=== PATIENT | female | born 1975 | race American Indian/Alaskan Native ===

== ENCOUNTER 2021-11-24 14:05 | Emergency (ER) | payer OTHER ==
[2021-11-24 14:16] VITALS: BP 110/64
[2021-11-24] MEDS ORDERED: MORPHINE 4 MG/1 ML INJ IV ONE ×2 (15:20→18:19)
[2021-11-24] MEDS ORDERED: ONDANSETRON 4 MG/2 ML INJ IV ONE (15:20)
[2021-11-24] MEDS ORDERED: PANTOPRAZOLE 40 MG INJ IV ONE (15:21)
--- NOTE | 2021-11-24 15:21 | Emergency Department Report ---
ED General Adult HPI - General Chief complaint: Chest Pain Stated complaint: CHEST PAIN PUI?: No Time Seen by Provider: 11/24/21 15:04 Source: patient, EMS ( EMS documentation not available at time of chart dictation ), RN notes reviewed Mode of arrival: Stretcher Limitations: No Limitations - History of Present Illness Initial comments: The patient was evaluated in the emergency department for symptoms described in the history of present illness. He/she was evaluated in the context of the global COVID-19 pandemic, which necessitated consideration that the patient might be at risk for infection with the virus that causes COVID-19. Institutional protocols and algorithms that pertain to the evaluation of patients at risk for COVID-19 are in a state of rapid change based on information released by regulatory bodies including the CDC and federal and state organizations. These policies and algorithms were followed during the patient's care in the emergency department. Please note that these policies, procedures and recommendations changed on a rapid basis. This is a pleasant and cooperative 46-year-old female. She is right-hand dominant. She is COVID-19 vaccinated. She has a history of nonspecific lupus, and is not currently on any maintenance medications. She was previously on Plaquenil a few years ago, but self discontinued. She presents to the ER today with a complaint of a few days of right-sided anterior chest wall pain. The chest wall pain today radiates to the back. There is no vomiting, diaphoresis or exertional shortness of breath. She feels like her lower extremities are more swollen than usual. 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 Her chest wall pain is aching and sharp, increases with palpation and decreases with rest. She also describes nonspecific left upper extremity numbness and pain and discomfort, which relieves when she elevates her left upper extremity. Currently, denies headache, neck pain, abdominal pain, vomiting, diaphoresis, hematemesis, bright red blood per rectum, and urinary symptoms. She was given aspirin and nitroglycerin by EMS in the field. Reports that she has many half siblings. She believes that her father has a history of CAD in his 70s. Uncertain about mother. No history of PE or DVT that she is aware of -: days(s) Location: chest, left, upper extremity Radiation: back Severity scale (0 -10): 1 Quality: other Consistency: other Improves with: other Worsens with: other - Related Data Previous Rx's Medication Instructions Recorded Last Taken Type Acetaminophen [Non-Aspirin Extra 500 mg PO Q6HR PRN #30 tablet 11/24/21 Unknown Rx Strength] Ibuprofen [Motrin] 600 mg PO Q8H PRN #30 tablet 11/24/21 Unknown Rx Allergies Allergy/AdvReac Type Severity Reaction Status Date / Time No Known Allergies Allergy Unverified 11/24/21 14:16 ED Review of Systems ROS: Stated complaint: CHEST PAIN Other details as noted in HPI Constitutional: denies: fever Eyes: denies: eye discharge ENT: denies: epistaxis Respiratory: denies: cough, wheezing Cardiovascular: chest pain Gastrointestinal: denies: abdominal pain, vomiting, hematemesis, melena, hematochezia Genitourinary: denies: dysuria Musculoskeletal: back pain Neurological: paresthesias. denies: weakness Psychiatric: depression ED Past Medical Hx - Past Medical History Additional medical history: lupus - Medications Home Medications: Home Medications Medication Instructions Recorded Confirmed Last Taken Type Acetaminophen [Non-Aspirin Extra 500 mg PO Q6HR PRN #30 tablet 11/24/21 Unknown Rx Strength] Ibuprofen [Motrin] 600 mg PO Q8H PRN #30 tablet 11/24/21 Unknown Rx ED Physical Exam - General Limitations: No Limitations, Other (During the history and physical examination, chaperoned by Camille Kauffman) General appearance: alert, anxious, obese - Head Head exam: Present: atraumatic, normocephalic - Eye Eye exam: Present: normal appearance, EOMI. Absent: nystagmus - ENT ENT exam: Present: normal exam, normal orophraynx, mucous membranes moist, normal external ear exam - Neck Neck exam: Present: normal inspection, full ROM. Absent: tenderness, meningismus - Respiratory Respiratory exam: Present: normal lung sounds bilaterally, chest wall tenderness. Absent: respiratory distress, wheezes, rales, rhonchi, stridor - Cardiovascular Cardiovascular Exam: Present: regular rate, normal rhythm, normal heart sounds. Absent: bradycardia, tachycardia, irregular rhythm, systolic murmur, diastolic murmur, rubs, gallop - GI/Abdominal GI/Abdominal exam: Present: soft. Absent: distended, tenderness, guarding, rebound, rigid, pulsatile mass - Extremities Exam Extremities exam: Present: normal inspection, full ROM, other (2+ pulses noted in the bilateral upper and lower extremities. There is no palpable cord. negative Homans sign. Muscular compartments are soft. The pelvis is stable.). Absent: calf tenderness - Back Exam Back exam: Present: normal inspection, full ROM. Absent: tenderness, CVA tenderness (R), CVA tenderness (L), paraspinal tenderness, vertebral tenderness - Neurological Exam Neurological exam: Present: alert, oriented X3, normal gait, other (No facial droop. Tongue midline. Extraocular movements intact bilaterally. Facial sensation intact to light touch in V1, V2, V3 distribution bilaterally. 5 and a 5 strength in 4 extremities. Sensation intact to light touch in 4 extremities.). Absent: motor sensory deficit - Psychiatric Psychiatric exam: Present: anxious - Skin Skin exam: Present: warm, dry, intact, normal color. Absent: rash ED Course Vital Signs 11/24/21 11/24/21 14:11 17:07 Temperature 98.2 F Pulse Rate 74 Respiratory 18 Rate Blood Pressure 110/64 [Left] O2 Sat by Pulse 98 Oximetry O2 Sat by Pulse 100 Oximetry [ Digit-Finger] - Reevaluation(s) Reevaluation #1: 11/24/21 16:51 Differential diagnosis, including but not limited to: GERD, gastritis, hiatal hernia, costochondritis, acute coronary syndrome, pulmonary embolism, thoracic outlet syndrome, cervical radiculopathy Assessment and plan: 46-year-old female, with a history of lupus, with chest pain that is subacute for the past few days, that radiates to the back, with a component of left upper extremity paresthesias and pain, which improved when she elevates the left upper extremity Given history of lupus, and nonspecific chest pain that radiates to the back, obtain CT angiogram of the chest. Troponin negative x1, EKG unremarkable, symptoms present for days, acute AR ruled out, patient at low risk for major adverse cardiac event as per heart score. She has equal pulses in the upper and lower extremities, no pulsatile abdominal mass, and appropriate strength and sensation in the upper and lower extremities. Her examination at this time is not suggestive of acute aortic syndrome. Her examination at this time is not suggestive of cord compression. We will treat her symptoms aggressively. We will obtain CT angiogram chest, and CT angiogram left upper extremity to evaluate for PE, as well as thoracic outlet syndrome. I discussed this plan of care with the patient and significant other at the bedside with her consent. All questions have been answered 11/24/21 17:07 Patient in no acute distress. She reports that her pain is markedly improved. Her troponin is negative. Discussed all findings with patient. She endorses understanding 11/24/21 18:20 CT scan chest negative for acute findings. CT scan upper extremity negative for acute finding. Having persistent chest wall pain. Predosing pain medication. Patient may be discharged to follow-up with outpatient primary care and/or cardiology. Patient at low risk for major adverse cardiac event as per heart score - Pulse Oximetry Interpretation Digit-Finger Initial Pulse Oximetry Readin O2 Sat by Pulse Oximetry: 100 Actions Taken: none ED Medical Decision Making - Lab Data Result diagrams: 11/24/21 15:37 11/24/21 15:37 Vital Signs 11/24/21 14:11 Temperature 98.2 F Pulse Rate 74 Respiratory 18 Rate Blood Pressure 110/64 [Left] O2 Sat by Pulse 98 Oximetry Lab Results 11/24/21 11/24/21 11/24/21 Range/Units 15:37 15:37 15:37 WBC 7.2 (4.5-11.0) K/mm3 RBC 4.40 (3.65-5.03) M/mm3 Hgb 11.7 (10.1-14.3) gm/dl Hct 37.3 (30.3-42.9) % MCV 85 (79-97) fl MCH 27 L (28-32) pg MCHC 31 (30-34) % RDW 15.6 H (13.2-15.2) % Plt Count 229 (140-440) K/mm3 Lymph % (Auto) 26.5 (13.4-35.0) % [place] % (Auto) 8.4 H (0.0-7.3) % Eos % (Auto) 3.3 (0.0-4.3) % Baso % (Auto) 1.2 (0.0-1.8) % Lymph # (Auto) 1.9 (1.2-5.4) K/mm3 [place] # (Auto) 0.6 (0.0-0.8) K/mm3 Eos # (Auto) 0.2 (0.0-0.4) K/mm3 Baso # (Auto) 0.1 (0.0-0.1) K/mm3 Seg Neutrophils % 60.6 (40.0-70.0) % Seg Neutrophils # 4.3 (1.8-7.7) K/mm3 Sodium 139 (137-145) mmol/L Potassium 4.8 (3.6-5.0) mmol/L Chloride 105.2 (98-107) mmol/L Carbon Dioxide 23 (22-30) mmol/L Anion Gap 16 mmol/L BUN 14 (7-17) mg/dL Creatinine 0.8 (0.6-1.2) mg/dL Estimated GFR > 60 ml/min BUN/Creatinine Ratio 18 % Glucose 79 (65-100) mg/dL Calcium 9.4 (8.4-10.2) mg/dL Magnesium 1.80 (1.7-2.3) mg/dL Total Bilirubin 0.40 (0.1-1.2) mg/dL AST 24 (5-40) units/L ALT 29 (7-56) units/L Alkaline Phosphatase 88 (35-129) units/L Total Creatine Kinase 84 (30-135) units/L Troponin T < 0.010 (0.00-0.029) ng/mL NT-Pro-B Natriuret Pep 76.73 (0-450) pg/mL Total Protein 6.6 (6.3-8.2) g/dL Albumin 4.1 (3.9-5) g/dL Albumin/Globulin Ratio 1.6 % HCG, Qual Negative (Negative) - EKG Data -: EKG Interpreted by Ms EKG shows normal: sinus rhythm Rate: normal - EKG Data When compared to previous EKG there are: previous EKG unavailable 11/24/21 16:47 The EKG is interpreted at 15: 23 Sinus rhythm, with a rate of 63 bpm. Normal axis, normal intervals, unremarkable EKG, not a STEMI, no prior for comparison - Radiology Data Radiology results: pending, report reviewed, image reviewed CTA CHEST WITH CONTRAST INDICATION / CLINICAL INFORMATION: acute cp rad to back. TECHNIQUE: Axial CT images were obtained through the chest after injection of IV contrast. 3 plane MIP and/or 3D reconstructions were produced. All CT scans at this location are performed using CT dose reduction for ALARA by means of automated exposure control. COMPARISON: None available. FINDINGS: The pulmonary arteries are patent without filling defect or evidence for PTE. No dominant mediastinal adenopathy is seen. No severe coronary artery disease. No focal consolidation pleural effusion or pneumothorax. Aorta appears normal. ADDITIONAL FINDINGS: None. UPPER ABDOMEN: No acute findings. SKELETAL STRUCTURES: No significant osseous abnormality. IMPRESSION: 1. No CT evidence for pulmonary embolism. 2. No acute findings. Signer Name: Da Madsen MD Signed: 11/24/2021 4:59 PM Workstation Name: [id number] CT angio upper extremity LT INDICATION / CLINICAL INFORMATION: Chest pain that radiates to the left upper extremi. TECHNIQUE: Axial, coronal and sagittal images All CT scans at this location are performed using CT dose reduction for ALARA by means of automated exposure control. COMPARISON: None available. FINDINGS: Aorta appears normal. The left subclavian artery appears normal without narrowing. The left upper extremity arteries appear normal in size and configuration. No severe stenosis is definitely seen. No fluid collection is seen in the left upper extremity or left neck. Radial artery or artery appear normal extending into the hand IMPRESSION: 1. Normal arterial flow within the left upper extremity. The subclavian appears normal without stenosis or evidence for narrowing. Signer Name: Da Madsen MD Signed: 11/24/2021 5:11 PM Workstation Name: [id number] Critical care attestation.: If time is entered above; I have spent that time in minutes in the direct care of this critically ill patient, excluding procedure time. ED Disposition Clinical Impression: Chest wall pain, Left arm pain Disposition: 01 HOME / SELF CARE / HOMELESS Is pt being admited?: No Does the pt Need Aspirin: No Condition: Good Instructions: Costochondritis Additional Instructions: Please alternate ice packs and heat packs as needed for physical pain. Rest, avoid heavy lifting and strenuous physical activity. Avoid consumption of alcohol, tobacco, smoke products, heavy and spicy foods. Please take the prescribed pain medications as needed/directed. Please follow-up with a bellman captain within the next 3 to 4 days. Laboratory studies ruled out heart attack today in the emergency room. A CT scan of the chest and left upper extremity ruled out a pulmonary embolism/blood clot in the lungs, collapsed lung, narrowed artery, no other emergent thoracic or pulmonary findings. Symptoms most likely coming from chest wall pain/costochondritis, and possible pinched nerve in the left upper extremity/radiculopathy. Please return to the emergency room right away with new pain, worsened pain, migration of pain, projectile vomiting, change in mental status, confusion, inability tolerate liquid feeds, new, worsened or different symptoms not present on the initial emergency room evaluation Referrals: [facility] [Provider Group] - 3-5 Days [facility] [Provider Group] - 3-5 Days Forms: Work/School Release Form(ED) Heart Score - HEART Score History: Slightly suspicious EKG: Non-specific Age: 45-65 Risk factors: 1-2 risk factors Troponin: < normal limit HEART Score: 3 - EKG Read Time Time EKG Completed: 15:23 EKG Read Time: 15:30 - Critical Actions Critical Actions: 0-3 pts:0.9-1.7%risk of adverse cardiac event.Candidate for discharge
[2021-11-24 16:09] LABS: Basophils # (Auto) 0.1 K/mm3 (0.0-0.1); Basophils % (Auto) 1.2 % (0.0-1.8); Eosinophils # (Auto) 0.2 K/mm3 (0.0-0.4); Eosinophils % (Auto) 3.3 % (0.0-4.3); Hematocrit 37.3 % (30.3-42.9); Hemoglobin 11.7 gm/dl (10.1-14.3); Lymphocytes # (Auto) 1.9 K/mm3 (1.2-5.4); Lymphocytes % (Auto) 26.5 % (13.4-35.0); Mean Corpuscular HGB Conc 31 % (30-34); Mean Corpuscular Volume 85 fl (79-97); Monocytes # (Auto) 0.6 K/mm3 (0.0-0.8); Monocytes % (Auto) 8.4 % (0.0-7.3); Platelet Count 229 K/mm3 (140-440); Red Cell Distribution Width 15.6 % (13.2-15.2)
[2021-11-24 16:38] LABS: Alanine Aminotransferase 29 units/L (7-56); Albumin 4.1 g/dL (3.9-5); BUN/Creatinine Ratio 18; Blood Urea Nitrogen 14 mg/dL (7-17); Calcium 9.4 mg/dL (8.4-10.2); Hemolysis Index 16
[2021-11-24 16:49] LABS: INR 0.93 (0.87-1.13)
[2021-11-24 16:50] LABS: Partial Thromboplastin Time 28.8 Sec. (24.2-36.6)
--- NOTE | 2021-11-24 18:04 | Cat Scan Report ---
CTA CHEST WITH CONTRAST INDICATION / CLINICAL INFORMATION: acute cp rad to back. TECHNIQUE: Axial CT images were obtained through the chest after injection of IV contrast. 3 plane NM P and/or 3D reconstructions were produced. All CT scans at this location are performed using CT dose reduction for ALARA by means of automated exposure control. COMPARISON: None available. FINDINGS: The pulmonary arteries are patent without filling defect or evidence for PTE. No dominant mediastinal adenopathy is seen. No severe coronary artery disease. No focal consolidation pleural effusion or pn eumothorax. Aorta appears normal. ADDITIONAL FINDINGS: None. UPPER ABDOMEN: No acute findings. SKELETAL STRUCTURES: No significant osseous abnormality. IMPRESSION: 1. No CT evidence for pulmonary embolism. 2. No acute findings. Signer Name: Da Madsen MD Signed: 11/24/2021 5:59 PM Workstation Name: [id number]
--- NOTE | 2021-11-24 18:15 | Cat Scan Report ---
CT angio upper extremity LT INDICATION / CLINICAL INFORMATION: Chest pain that radiates to the left upper extremi. TECHNIQUE: Axial, coronal and sagittal images All CT scans at this location are performed using CT dose reductio n for ALARA by means of automated exposure control. COMPARISON: None available. FINDINGS: Aorta appears normal. The left subclavian artery appears normal without narrowing. The left upper ext remity arteries appear normal in size and configuration. No severe stenosis is definitely seen. No fl uid collection is seen in the left upper extremity or left neck. Radial artery or artery appear gabino l extending into the hand IMPRESSION: 1. Normal arterial flow within the left upper extremity. The subclavian appears normal without stenos is or evidence for narrowing. Signer Name: Da Madsen MD Signed: 11/24/2021 6:11 PM Workstation Name: [id number]
[2021-11-24] MEDS ORDERED: KETOROLAC 30 MG/1 ML INJ IV ONE (18:19)
--- NOTE | 2021-11-26 09:55 | Electrocardiograph Report ---
[facility] Test Date: 2021-11-24 Test Time: 15:23:43 Pat Name: RM MORRIS Department: Room: Gender: F Turn Supervisor: FREDDY : 1975 Requested By: LACY EDWARDS Order Number: [id number] Reading MD: Lavelle Vail Measurements Intervals [place] Rate: 63 P: 34 MD: 148 QRS: 61 QRSD: 77 T: 53 QT: 394 QTc: 403 Interpretive Statements Sinus rhythm No previous ECG available for comparison Electronically Signed On 11-26-2021 9:55:13 EDT by Lavelle Vail
== END 2021-11-24 18:46 | disposition home or self-care (01) ==
LOC: ED 14:05
DX: R07.9 Chest pain, unspecified (principal); M79.602 Pain in left arm
CPT/HCPCS: 36415; 71275; 73206; 80053; 82550; 83735; 83880; 84484; 84703; 85025; 85379; 85610; 85730; 93005; 96374; 96375; 96376; 99284; C9113; J1885; J2270; J2405; Q9967

== ENCOUNTER 2021-12-11 12:00 | Observation (INO) | payer OTHER ==
[2021-12-11] MEDS ORDERED: ASPIRIN 81 MG TAB CHEW PO ONE (12:14)
--- NOTE | 2021-12-11 13:15 | Emergency Department Report ---
ED Chest Pain HPI - General Chief Complaint: Chest Pain Stated Complaint: CHEST PAIN Time Seen by Provider: 12/11/21 12:14 Source: patient, EMS Mode of arrival: Stretcher Limitations: No Limitations - History of Present Illness Initial Comments: Patient is a 46-year-old female sent from [facility] for evaluation of chest pain. She was seen here roughly a week ago with complaint of chest pain and discharged. Was at her appointment today undergoing stress test which was reportedly abnormal. States she developed worsening pain shortly after and was sent here for evaluation and admission with plans for heart catheterization. Severity scale (0 -10): 6 - Related Data Previous Rx's Medication Instructions Recorded Last Taken Type Acetaminophen [Non-Aspirin Extra 500 mg PO Q6HR PRN #30 tablet 11/24/21 Unknown Rx Strength] Ibuprofen [Motrin] 600 mg PO Q8H PRN #30 tablet 11/24/21 Unknown Rx Allergies Allergy/AdvReac Type Severity Reaction Status Date / Time No Known Allergies Allergy Unverified 11/24/21 14:16 Heart Score - HEART Score History: Highly suspicious EKG: Normal Age: 45-65 Risk factors: 1-2 risk factors Troponin: < normal limit HEART Score: 4 - EKG Read Time Time EKG Completed: 12:32 EKG Read Time: 12:35 - Critical Actions Critical Actions: 4-6 pts:12-16.6% risk of adverse cardiac event. Should be admi tted ED Review of Systems ROS: Stated complaint: CHEST PAIN Other details as noted in HPI Constitutional: denies: chills, fever Respiratory: denies: cough, shortness of breath, wheezing Cardiovascular: chest pain. denies: palpitations Gastrointestinal: denies: abdominal pain, nausea, diarrhea Musculoskeletal: denies: back pain, joint swelling, arthralgia Skin: denies: rash, lesions Neurological: denies: headache, weakness, paresthesias ED Past Medical Hx - Past Medical History Additional medical history: lupus - Social History Smoking Status: Never Smoker Substance Use Type: None - Medications Home Medications: Home Medications Medication Instructions Recorded Confirmed Last Taken Type Acetaminophen [Non-Aspirin Extra 500 mg PO Q6HR PRN #30 tablet 11/24/21 Unknown Rx Strength] Ibuprofen [Motrin] 600 mg PO Q8H PRN #30 tablet 11/24/21 Unknown Rx ED Physical Exam - General Limitations: No Limitations General appearance: alert, in no apparent distress - Head Head exam: Present: atraumatic, normocephalic - Respiratory Respiratory exam: Present: normal lung sounds bilaterally. Absent: respiratory distress - Cardiovascular Cardiovascular Exam: Present: regular rate, normal rhythm, normal heart sounds - GI/Abdominal GI/Abdominal exam: Present: soft. Absent: distended, tenderness - Rectal Rectal exam: Present: deferred - Neurological Exam Neurological exam: Present: alert, oriented X3 - Psychiatric Psychiatric exam: Present: normal affect, normal mood - Skin Skin exam: Present: warm, dry, intact, normal color ED Course Vital Signs 12/11/21 12/11/21 12/11/21 12:17 12:40 12:46 Pulse Rate 84 85 90 Respiratory 17 11 L 11 L Rate Blood Pressure 141/67 Blood Pressure 141/67 [Left] O2 Sat by Pulse 99 99 100 Oximetry 12/11/21 12/11/21 12/11/21 13:00 13:15 13:31 Pulse Rate 88 89 77 Respiratory 16 11 L 12 Rate Blood Pressure 161/87 171/89 135/72 Blood Pressure [Left] O2 Sat by Pulse 98 100 99 Oximetry 12/11/21 12/11/21 12/11/21 13:51 14:01 14:15 Pulse Rate 86 83 80 Respiratory 20 21 Rate Blood Pressure 141/62 133/74 135/72 Blood Pressure [Left] O2 Sat by Pulse 100 99 99 Oximetry 12/11/21 12/11/21 12/11/21 14:31 14:45 15:01 Pulse Rate 84 84 84 Respiratory 14 17 12 Rate Blood Pressure 148/80 164/59 157/79 Blood Pressure [Left] O2 Sat by Pulse 100 100 99 Oximetry 12/11/21 15:15 Pulse Rate 81 Respiratory 12 Rate Blood Pressure 147/76 Blood Pressure [Left] O2 Sat by Pulse 86 Oximetry ED Medical Decision Making - Lab Data Result diagrams: 12/11/21 12:22 12/11/21 12:22 - EKG Data -: EKG Interpreted by Me EKG shows normal: sinus rhythm, axis, intervals, QRS complexes, ST-T waves Rate: normal - Medical Decision Making EKG, chest x-ray and labs grossly unremarkable. Will admit to hospitalist. Critical care attestation.: If time is entered above; I have spent that time in minutes in the direct care of this critically ill patient, excluding procedure time. ED Disposition Clinical Impression: Positive cardiac stress test, Chest pain Disposition: 09 ADMITTED INPATIENT Is pt being admited?: Yes Condition: Stable
[2021-12-11 13:20] LABS: Hematocrit 38.9 % (30.3-42.9); Hemoglobin 12.8 gm/dl (10.1-14.3); Mean Corpuscular HGB Conc 33 % (30-34); Mean Corpuscular Volume 83 fl (79-97); Platelet Count 266 K/mm3 (140-440); Red Blood Count 4.66 M/mm3 (3.65-5.03); Red Cell Distribution Width 15.8 % (13.2-15.2)
[2021-12-11 13:26] LABS: INR 0.92 (0.87-1.13)
[2021-12-11 13:27] LABS: Partial Thromboplastin Time 27.5 Sec. (24.2-36.6)
[2021-12-11 13:45] LABS: Alanine Aminotransferase 21 units/L (7-56); Albumin 4.5 g/dL (3.9-5); Blood Urea Nitrogen 14 mg/dL (7-17); Calcium 9.8 mg/dL (8.4-10.2); Hemolysis Index 5
--- NOTE | 2021-12-11 14:03 | XRay Report ---
CHEST 1 VIEW 12/11/2021 12:56 PM INDICATION / CLINICAL INFORMATION: Chest Pain. COMPARISON: None available. FINDINGS: SUPPORT DEVICES: None. HEART / MEDIASTINUM: The heart size and pulmonary vasculature are normal. The aorta is normal in nataly amna. LUNGS / PLEURA: No significant pulmonary or pleural abnormality. No pneumothorax. ADDITIONAL FINDINGS: No significant additional findings. IMPRESSION: No acute findings. Signer Name: Jhoan Chin MD Signed: 12/11/2021 1:59 PM Workstation Name: [id number]
[2021-12-11 14:10] LABS: BUN/Creatinine Ratio 20
[2021-12-11 14:22] LABS: Basophils % (Manual) 0 % (0.0-1.8); Eosinophils % (Manual) 0 % (0.0-4.3); Platelet Estimate Consistent w Auto; RBC Morphology Normal; Total Cells Counted 100
[2021-12-11] MEDS ORDERED: HEPARIN BOLUS 10,000 UNIT/10 ML VIAL IV ONE (15:32)
[2021-12-11] MEDS ORDERED: ALBUTEROL 2.5 MG/3 ML NEBU IH PRN (15:34)
[2021-12-11] MEDS ORDERED: HYDROmorphone 0.5 MG/0.5 ML INJ IV PRN (15:34)
[2021-12-11] MEDS ORDERED: ACETAMINOPHEN 325 MG TAB PO PRN (15:34)
[2021-12-11] MEDS ORDERED: oxyCODONE /ACETAMINOPHEN 5-325MG TAB PO PRN (15:34)
--- NOTE | 2021-12-11 15:38 | History and Physical Report ---
History of Present Illness Chief complaint: My chest hurts History of present illness: 46 YO Female with SLE, Obesity presents ED for evaluation. Patient reports "my chest hurts". Patient states that she has experienced pain in her chest over the past 2 weeks. Patient states that pain was initially intermittent but has become more constant. Patient states that pain is 4-09/2009, intermittent, worsened with exertion, relieved with rest. 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 EMS was notified and upon arrival the patient was transported to [facility] for further care and evaluation of the aforementioned symptoms. The patient was seen and evaluated in the emergency department. All lab and imaging studies reviewed. Patient found to have clinical symptoms consistent with angina at rest, as well as diastolic CHF, and NSTEMI. Patient initiated on therapeutic anticoagulation in the emergency department. Cardiology team consulted. Pat ient is pending cardiac cath. Patient denies fever, chills, productive cough, skin rash, recent contact, unilateral leg swelling, calf pain, individual/family history of DVT/PE/bleeding/blood clotting disorders, or known exposure to COVID- 19. No prior admission for review. No medication listed at time of admission for reconciliation. Advanced care planning conducted in ED. Past History Past Medical History: other (SLE, see HPI) Past Surgical History: No surgical history, Other (Reviewed) Social history: single. denies: smoking, alcohol abuse Family history: hypertension Medications and Allergies Allergies Allergy/AdvReac Type Severity Reaction Status Date / Time No Known Allergies Allergy Unverified 11/24/21 14:16 Home Medications Medication Instructions Recorded Confirmed Last Taken Type Acetaminophen [Non-Aspirin Extra 500 mg PO Q6HR PRN #30 tablet 11/24/21 Unknown Rx Strength] Ibuprofen [Motrin] 600 mg PO Q8H PRN #30 tablet 11/24/21 Unknown Rx Active Meds: Active Medications Atorvastatin Calcium (Atorvastatin 40 Mg Tab) 40 mg PO QHS DAWNA Sodium Chloride (Nacl 0.9% 500 Ml) 500 mls @ 50 mls/hr IV DIRECT DAWNA Stop: 12/12/21 01:59 Heparin Sodium/Sodium Chloride (Heparin/ 0.45% Nacl-25,000 Unit/250 Ml) 25,000 unit in 250 mls @ 11.975 mls/hr IV TITRATE DAWNA; Protocol Metoprolol Tartrate (Metoprolol Tartrate 50 Mg Tab) 25 mg PO BID [facility] Review of Systems Constitutional: no weight loss, no weight gain, no fever, no chills Ears, nose, mouth and throat: no ear pain, no ear discharge, no decreased hearing, no nose pain Cardiovascular: chest pain, decreased exercise tolerance, no palpitations, no edema Respiratory: no cough, no cough with sputum, no excessive sputum Gastrointestinal: no nausea, no vomiting, no diarrhea, no constipation Genitourinary Female: no pelvic pain, no flank pain, no dysuria, no urinary frequency, no urgency Rectal: no pain, no incontinence, no bleeding Musculoskeletal: no neck stiffness, no neck pain, no shooting arm pain, no arm numbness/tingling Integumentary: no rash, no pruritis, no redness, no sores, no wounds, no jaundice Neurological: no paralysis, no weakness, no parathesias, no numbness, no tingling, no seizures Psychiatric: no anxiety, no change in sleep habits, no insomnia, no change in appetite, no change in libido, no suicidal ideation Endocrine: no cold intolerance, no polyuria, no nocturia, no excessive sweating Hematologic/Lymphatic: no easy bruising, no easy bleeding Allergic/Immunologic: no urticaria, no allergic rhinitis Exam - Constitutional Vitals: Temp Pulse Resp BP Pulse Ox 81 12 147/76 86 12/11/21 15:15 12/11/21 15:15 12/11/21 15:15 12/11/21 15:15 General appearance: Present: mild distress, obese - EENT Eyes: Present: PERRL ENT: hearing intact, clear oral mucosa - Neck Neck: Present: supple, normal ROM - Respiratory Respiratory effort: normal Respiratory: bilateral: CTA - Cardiovascular Heart Sounds: Present: S1 & S2. Absent: rub, click - Extremities Extremities: pulses symmetrical, No edema Peripheral Pulses: within normal limits - Abdominal General gastrointestinal: Present: soft, non-tender, non-distended, normal bowel sounds Female genitourinary: Present: normal - Integumentary Integumentary: Present: clear, warm, dry - Musculoskeletal Musculoskeletal: gait normal, strength equal bilaterally - Psychiatric Psychiatric: appropriate mood/affect, intact judgment & insight - Neurologic Neurologic: CNII-XII intact, moves all extremities HEART Score - HEART Score EKG: Normal Age: 45-65 Risk factors: 1-2 risk factors Troponin: Troponin T < 0.010 ng/mL (0.00-0.029) 12/11/21 12:22 Troponin: < normal limit - Critical Actions Critical Actions: 4-6 pts:12-16.6% risk of adverse cardiac event. Should be admitted Results - Labs CBC & Chem 7: 12/11/21 15:42 12/11/21 12:22 Labs: Abnormal lab results 12/11/21 12/11/21 Range/Units 12:22 12:22 MCH 27 L (28-32) pg RDW 15.8 H (13.2-15.2) % Seg Neuts % (Manual) 97.0 H (40.0-70.0) % Lymphocytes % (Manual) 1.0 L (13.4-35.0) % Seg Neutrophils # Man 9.7 H (1.8-7.7) K/mm3 Lymphocytes # (Manual) 0.1 L (1.2-5.4) K/mm3 Sodium 135 L (137-145) mmol/L Carbon Dioxide 21 L (22-30) mmol/L Glucose 139 H (65-100) mg/dL Assessment and Plan - Patient Problems (1) Angina at rest Current Visit: Yes Status: Acute Plan to address problem: ACS protocol: Serial cardiac enzymes, EKG, telemetry monitoring, morphine, submental oxygen, nitro, aspirin, patient pending cardiac cath in a.m. Cardiology team consulted. Further care and evaluation as per cardiology team. (2) Diastolic CHF Current Visit: Yes Status: Suspected Qualifiers: Heart failure chronicity: acute Qualified Code(s): I50.31 - Acute diastolic (congestive) heart failure Plan to address problem: Strict I's/O, monitoring application, daily weight, afterload reduction, blood pressure control, echocardiogram ordered and pending at time of admission. (3) NSTEMI (non-ST elevated myocardial infarction) Current Visit: Yes Status: Suspected Plan to address problem: ACS protocol: Serial cardiac enzymes, EKG, telemetry monitoring, cardiology team consulted, therapeutic anticoagulation, supportive care, pain control, continue medical management. Further care and evaluation as per cardiology team. (4) Obesity hypoventilation syndrome Current Visit: Yes Status: Acute Plan to address problem: Balanced diet, increase physical activity discharge, outpatient pulmonary follow-up for sleep study, meal planning, weight reduction, supportive care. (5) Lupus Current Visit: Yes Status: Acute Plan to address problem: Continue medical management. Outpatient rheumatology follow-up, supportive care. No acute exacerbation at this time. (6) Positive cardiac stress test Current Visit: Yes Status: Acute Plan to address problem: Cardiology team consulted. Patient pending cardiac cath in a.m. Therapeutic anticoagulation. (7) DVT prophylaxis Current Visit: Yes Status: Acute Plan to address problem: SCDs bilateral lower extremities while in bed (8) Advance care planning Current Visit: Yes Status: Acute Plan to address problem: Disease education done, care plan discussed, diagnoses, prognosis discussed, patient is full code. Patient knowledges understanding and agreement with care plan, +30 minutes. (9) Preventative health care Current Visit: Yes Status: Acute Plan to address problem: Patient counseled regarding risk factor reduction, weight reduction, balanced diet, increase physical activity discharge, follow-up with primary care physician for all age and risk factor appropriate screening test. Follow-up with financial examiner for all age and risk factor appropriate screening test. +30 minutes.
[2021-12-11] MEDS ORDERED: HEPARIN/ 0.45% NACL DRIP 25,000 UNIT/250 ML BAG IV SCH (16:00)
[2021-12-11] MEDS: METOPROLOL TARTRATE 25 MG TAB PO SCH ×2 (16:23→21:55)
[2021-12-11] MEDS: ONDANSETRON 4 MG/2 ML INJ IV PRN (16:31)
[2021-12-11 16:39] LABS: Hematocrit 39.7 % (30.3-42.9); Hemoglobin 12.7 gm/dl (10.1-14.3)
[2021-12-11 16:49] LABS: INR 0.89 (0.87-1.13)
[2021-12-11 16:50] LABS: Partial Thromboplastin Time 28.3 Sec. (24.2-36.6)
--- NOTE | 2021-12-11 17:01 | Consultation ---
History of Present Illness Consult date: 12/11/21 Requesting physician: JUAN SAM Consult reason: chest pain History of present illness: Patient is a 46-year-old female with a past medical history of lupus who presented to the ED today with a complaint of chest pain x2-week. Patient presented to the ED about 2 weeks ago with a complaint of chest pain. At that time patient had normal EKG and negative troponins and was recommended to follow-up with cardiology as an outpatient. Patient followed up with our practice and was seen by Dr. Engle who scheduled patient for stress test. Patient presented for stress test in the clinic today and was found to have markedly abnormal stress test and continued to have chest pain. Patient was sent from the clinic to the ED for further evaluation. Patient describes chest pain as pressure, that is worse with exertion and has not have any relieving factors. Patient also reports some shortness of breath that is also worse with exertion and associated with her chest pain. Patient reports the chest pain is not worsened by palpation or deep breathing. Cardiology is consulted for angina. Past History Past Medical History: other (Lupus) Past Surgical History: No surgical history Social history: no significant social history Family history: CAD, diabetes, hypertension, other (Asthma) Medications and Allergies Allergies Allergy/AdvReac Type Severity Reaction Status Date / Time No Known Allergies Allergy Unverified 11/24/21 14:16 Home Medications Medication Instructions Recorded Confirmed Last Taken Type Acetaminophen [Non-Aspirin Extra 500 mg PO Q6HR PRN #30 tablet 11/24/21 Unknown Rx Strength] Ibuprofen [Motrin] 600 mg PO Q8H PRN #30 tablet 11/24/21 Unknown Rx Active Meds: Active Medications Acetaminophen (Acetaminophen 325 Mg Tab) 650 mg PO Q4H PRN PRN Reason: Pain MILD(1-3)/Fever >100.5/MITCHELL Albuterol (Albuterol 2.5 Mg/3 Ml Nebu) 2.5 mg IH Q4HRT PRN PRN Reason: Shortness Of Breath Atorvastatin Calcium (Atorvastatin 40 Mg Tab) 40 mg PO QHS DAWNA Famotidine (Famotidine 20 Mg Tab) 20 mg PO BID DAWNA Hydromorphone HCl (Hydromorphone 0.5 Mg/0.5 Ml Inj) 0.5 mg IV Q3H PRN PRN Reason: Pain , Severe (7-10) Last Admin: 12/11/21 16:30 Dose: 0.5 mg Sodium Chloride (Nacl 0.9% 500 Ml) 500 mls @ 50 mls/hr IV DIRECT DAWNA Stop: 12/12/21 01:59 Heparin Sodium/Sodium Chloride (Heparin/ 0.45% Nacl-25,000 Unit/250 Ml) 25,000 unit in 250 mls @ 9.979 mls/hr IV TITRATE DAWNA; Protocol Last Admin: 12/11/21 16:28 Dose: 10 units/kg/hr, 9.979 mls/hr Metoprolol Tartrate (Metoprolol Tartrate 25 Mg Tab) 25 mg PO BID DAWNA Last Admin: 12/11/21 16:23 Dose: 25 mg Ondansetron HCl (Ondansetron 4 Mg/2 Ml Inj) 4 mg IV Q8H PRN PRN Reason: Nausea And Vomiting Last Admin: 12/11/21 16:31 Dose: 4 mg Oxycodone/Acetaminophen (Oxycodone /Acetaminophen 5-325mg Tab) 1 tab PO Q6H PRN PRN Reason: Pain, Moderate (4-6) Sodium Chloride (Sodium Chloride 0.9% 10 Ml Flush Syringe) 10 ml IV BID DAWNA Sodium Chloride (Sodium Chloride 0.9% 10 Ml Flush Syringe) 10 ml IV PRN PRN PRN Reason: LINE FLUSH Review of Systems Constitutional: no weight loss, no weight gain Ears, nose, mouth and throat: no sinus pressure, no sinus pain Cardiovascular: chest pain, shortness of breath, dyspnea on exertion Respiratory: dyspnea on exertion Gastrointestinal: no abdominal pain, no nausea, no vomiting Musculoskeletal: no neck stiffness, no neck pain Integumentary: no rash, no pruritis, no redness Neurological: no head injury, no transient paralysis, no paralysis Psychiatric: no anxiety, no memory loss Physical Examination Vital Signs Pulse Resp BP Pulse Ox 84 17 141/67 99 12/11/21 12:17 12/11/21 12:17 12/11/21 12:17 12/11/21 12:17 General appearance: no acute distress HEENT: Positive: PERRL Cardiac: Positive: Reg Rate and Rhythm Lungs: Positive: Normal Breath Sounds Neuro: Positive: Grossly Intact Abdomen: Positive: Soft Skin: Negative: Rash, Suspicious Lesions, Ulceration Extremities: Present: upper extr. pulses. Absent: edema Results 12/11/21 15:42 12/11/21 12:22 Cardiac Enzymes 12/11/21 Range/Units 12:22 AST 18 (5-40) units/L Coagulation 12/11/21 12/11/21 Range/Units 12: 15:42 PT 13.6 13.3 (12.2-14.9) Sec. INR 0.92 0.89 (0.87-1.13) APTT 27.5 28.3 (24.2-36.6) Sec. CBC 12/11/21 12/11/21 Range/Units 12:22 15:42 WBC 10.0 (4.5-11.0) K/mm3 RBC 4.66 (3.65-5.03) M/mm3 Hgb 12.8 12.7 (10.1-14.3) gm/dl Hct 38.9 39.7 (30.3-42.9) % Plt Count 266 272 (140-440) K/mm3 Comprehensive Metabolic Panel 12/11/21 Range/Units 12:22 Sodium 135 L (137-145) mmol/L Potassium 4.5 (3.6-5.0) mmol/L Chloride 101.3 (98-107) mmol/L Carbon Dioxide 21 L (22-30) mmol/L BUN 14 (7-17) mg/dL Creatinine 0.7 (0.6-1.2) mg/dL Glucose 139 H (65-100) mg/dL Calcium 9.8 (8.4-10.2) mg/dL AST 18 (5-40) units/L ALT 21 (7-56) units/L Alkaline Phosphatase 93 (35-129) units/L Total Protein 7.4 (6.3-8.2) g/dL Albumin 4.5 (3.9-5) g/dL - Imaging and Cardiology Echo: pending Cardiac cath: pending EKG interpretations - Telemetry EKG Rhythm: Sinus Rhythm - EKG Sinus rhythms and dysrhythmias: sinus rhythm Assessment and Plan Patient is a 46-year-old female with a past medical history of lupus who presented to the ED today with a complaint of chest pain x2-week. Chest pain Abnormal stress test Lupus Obesity Plan: EKG shows sinus rhythm 84 no acute ischemic changes. Troponins negative x2 As patient presented to our clinic and had markedly abnormal stress test we will schedule patient for cardiac cath in the a.m. Patient to be n.p.o. after midnight Initiate heparin drip, aspirin, atorvastatin 40 mg p.o. nightly, and metoprolol 25 mg p.o. twice daily Echo pending Plan of care discussed with patient who verbalized understanding and acknowledgment Patient seen in conjunction with Dr. Amato who agrees with plan of care - Patient Problems (1) Lupus Current Visit: Yes Status: Acute (2) Chest pain Current Visit: Yes Status: Acute (3) Positive cardiac stress test Current Visit: Yes Status: Acute
[2021-12-11] MEDS: FAMOTIDINE 20 MG TAB PO SCH (21:55)
[2021-12-12 04:29] LABS: Basophils # (Auto) 0.1 K/mm3 (0.0-0.1); Basophils % (Auto) 0.5 % (0.0-1.8); Eosinophils # (Auto) 0.1 K/mm3 (0.0-0.4); Eosinophils % (Auto) 0.8 % (0.0-4.3); Hematocrit 36.2 % (30.3-42.9); Hemoglobin 11.4 gm/dl (10.1-14.3); Lymphocytes % (Auto) 24.7 % (13.4-35.0); Mean Corpuscular HGB Conc 32 % (30-34); Mean Corpuscular Volume 84 fl (79-97); Monocytes # (Auto) 1.1 K/mm3 (0.0-0.8); Monocytes % (Auto) 8.8 % (0.0-7.3); Platelet Count 245 K/mm3 (140-440); Red Blood Count 4.31 M/mm3 (3.65-5.03); Red Cell Distribution Width 15.6 % (13.2-15.2)
[2021-12-12 05:02] LABS: BUN/Creatinine Ratio 21; Blood Urea Nitrogen 19 mg/dL (7-17); Calcium 9.2 mg/dL (8.4-10.2); Hemolysis Index 3
[2021-12-12] MEDS ORDERED: ASPIRIN EC 325 MG TAB PO ONE (09:24)
--- NOTE | 2021-12-12 09:37 | Progress Note ---
Assessment and Plan Assessment and plan: 46-year-old female with past medical history of SLE presented through the emergency department with complaints of chest pain x2 weeks. Patient reportedly had markedly abnormal stress test as an outpatient and transferred to our facility for cardiac catheterization Chest pain Lupus Abnormal stress 12/12/2021. Continue heparin drip, aspirin metoprolol twice daily and Lipitor 40 mg daily. Patient reportedly refused echocardiogram because it was completed as outpatient. Await cardiology recommendations History Interval history: No new issues overnight Hospitalist Physical - Constitutional Vitals: Temp Pulse Resp BP Pulse Ox 98.9 F 79 16 138/68 100 12/12/21 08:35 12/12/21 08:35 12/12/21 03:31 12/12/21 08:35 12/12/21 08:35 General appearance: Present: mild distress, obese - EENT Eyes: Present: PERRL, EOM intact ENT: hearing intact, clear oral mucosa, dentition normal - Neck Neck: Present: supple, normal ROM - Respiratory Respiratory effort: normal Respiratory: bilateral: CTA - Cardiovascular Rhythm: regular Heart Sounds: Present: S1 & S2. Absent: gallop, rub - Extremities Extremities: no ischemia, No edema, Full ROM - Abdominal General gastrointestinal: soft, non-tender, non-distended, normal bowel sounds - Integumentary Integumentary: Present: clear, warm, dry - Neurologic Neurologic: CNII-XII intact, moves all extremities HEART Score - HEART Score EKG: Normal Age: 45-65 Risk factors: 1-2 risk factors Troponin: Troponin T < 0.010 ng/mL (0.00-0.029) 12/11/21 23:24 Troponin: < normal limit - Critical Actions Critical Actions: 4-6 pts:12-16.6% risk of adverse cardiac event. Should be admitted Results - Labs CBC & Chem 7: 12/12/21 03:37 12/12/21 03:37 Labs: Laboratory Last Values WBC 12.2 K/mm3 (4.5-11.0) H 12/12/21 03:37 RBC 4.31 M/mm3 (3.65-5.03) 12/12/21 03:37 Hgb 11.4 gm/dl (10.1-14.3) 12/12/21 03:37 Hct 36.2 % (30.3-42.9) 12/12/21 03:37 MCV 84 fl (79-97) 12/12/21 03:37 MCH 27 pg (28-32) L 12/12/21 03:37 MCHC 32 % (30-34) 12/12/21 03:37 RDW 15.6 % (13.2-15.2) H 12/12/21 03:37 Plt Count 245 K/mm3 (140-440) 12/12/21 03:37 Lymph % (Auto) 24.7 % (13.4-35.0) 12/12/21 03:37 Casey % (Auto) 8.8 % (0.0-7.3) H 12/12/21 03:37 Eos % (Auto) 0.8 % (0.0-4.3) 12/12/21 03:37 Baso % (Auto) 0.5 % (0.0-1.8) 12/12/21 03:37 Lymph # (Auto) 3.0 K/mm3 (1.2-5.4) 12/12/21 03:37 Casey # (Auto) 1.1 K/mm3 (0.0-0.8) H 12/12/21 03:37 Eos # (Auto) 0.1 K/mm3 (0.0-0.4) 12/12/21 03:37 Baso # (Auto) 0.1 K/mm3 (0.0-0.1) 12/12/21 03:37 Add Manual Diff Complete 12/11/21 12:22 Total Counted 100 12/11/21 12:22 Seg Neutrophils % 65.2 % (40.0-70.0) 12/12/21 03:37 Seg Neuts % (Manual) 97.0 % (40.0-70.0) H 12/11/21 12:22 Band Neutrophils % 0 % 12/11/21 12:22 Lymphocytes % (Manual) 1.0 % (13.4-35.0) L 12/11/21 12:22 Reactive Lymphs % (Man) 0 % 12/11/21 12:22 Monocytes % (Manual) 2.0 % (0.0-7.3) 12/11/21 12:22 Eosinophils % (Manual) 0 % (0.0-4.3) 12/11/21 12:22 Basophils % (Manual) 0 % (0.0-1.8) 12/11/21 12:22 Metamyelocytes % 0 % 12/11/21 12:22 Myelocytes % 0 % 12/11/21 12:22 Promyelocytes % 0 % 12/11/21 12:22 Blast Cells % 0 % 12/11/21 12:22 Nucleated RBC % Not Reportable 12/11/21 12:22 Seg Neutrophils # 8.0 K/mm3 (1.8-7.7) H 12/12/21 03:37 Seg Neutrophils # Man 9.7 K/mm3 (1.8-7.7) H 12/11/21 12:22 Band Neutrophils # 0.0 K/mm3 12/11/21 12:22 Lymphocytes # (Manual) 0.1 K/mm3 (1.2-5.4) L 12/11/21 12:22 Abs React Lymphs (Man) 0.0 K/mm3 12/11/21 12:22 Monocytes # (Manual) 0.2 K/mm3 (0.0-0.8) 12/11/21 12:22 Eosinophils # (Manual) 0.0 K/mm3 (0.0-0.4) 12/11/21 12:22 Basophils # (Manual) 0.0 K/mm3 (0.0-0.1) 12/11/21 12:22 Metamyelocytes # 0.0 K/mm3 12/11/21 12:22 Myelocytes # 0.0 K/mm3 12/11/21 12:22 Promyelocytes # 0.0 K/mm3 12/11/21 12:22 Blast Cells # 0.0 K/mm3 12/11/21 12:22 WBC Morphology Not Reportable 12/11/21 12:22 Hypersegmented Neuts Not Reportable 12/11/21 12:22 Hyposegmented Neuts Not Reportable 12/11/21 12:22 Hypogranular Neuts Not Reportable 12/11/21 12:22 Smudge Cells Not Reportable 12/11/21 12:22 Toxic Granulation Not Reportable 12/11/21 12:22 Toxic Vacuolation Not Reportable 12/11/21 12:22 Dohle Bodies Not Reportable 12/11/21 12:22 Pelger-Huet Anomaly Not Reportable 12/11/21 12:22 Nettie Rods Not Reportable 12/11/21 12:22 Platelet Estimate Consistent w auto 12/11/21 12:22 Clumped Platelets Not Reportable 12/11/21 12:22 Plt Clumps, EDTA Not Reportable 12/11/21 12:22 Large Platelets Not Reportable 12/11/21 12:22 Giant Platelets Not Reportable 12/11/21 12:22 Platelet Satelliting Not Reportable 12/11/21 12:22 Plt Morphology Comment Not Reportable 12/11/21 12:22 RBC Morphology Normal 12/11/21 12:22 Dimorphic RBCs Not Reportable 12/11/21 12:22 Polychromasia Not Reportable 12/11/21 12:22 Hypochromasia Not Reportable 12/11/21 12:22 Poikilocytosis Not Reportable 12/11/21 12:22 Anisocytosis Not Reportable 12/11/21 12:22 Microcytosis Not Reportable 12/11/21 12:22 Macrocytosis Not Reportable 12/11/21 12:22 Spherocytes Not Reportable 12/11/21 12:22 Pappenheimer Bodies Not Reportable 12/11/21 12:22 Sickle Cells Not Reportable 12/11/21 12:22 Target Cells Not Reportable 12/11/21 12:22 Tear Drop Cells Not Reportable 12/11/21 12:22 Ovalocytes Not Reportable 12/11/21 12:22 Helmet Cells Not Reportable 12/11/21 12:22 Perea-Sobieski Bodies Not Reportable 12/11/21 12:22 [place] Rings Not Reportable 12/11/21 12:22 [place] Cells Not Reportable 12/11/21 12:22 Bite Cells Not Reportable 12/11/21 12:22 Crenated Cell Not Reportable 12/11/21 12:22 Elliptocytes Not Reportable 12/11/21 12:22 Acanthocytes (Spur) Not Reportable 12/11/21 12:22 Rouleaux Not Reportable 12/11/21 12:22 Hemoglobin C Crystals Not Reportable 12/11/21 12:22 Schistocytes Not Reportable 12/11/21 12:22 Malaria parasites Not Reportable 12/11/21 12:22 Jacob Bodies Not Reportable 12/11/21 12:22 Hem Pathologist Commnt No 12/11/21 12:22 PT 13.3 Sec. (12.2-14.9) 12/11/21 15:42 INR 0.89 (0.87-1.13) 12/11/21 15:42 APTT 28.3 Sec. (24.2-36.6) 12/11/21 15:42 Heparin Anti-Xa Level 0.42 U.I./ml (0.3-0.7) 12/11/21 23:24 Sodium 141 mmol/L (137-145) 12/12/21 03:37 Potassium 4.2 mmol/L (3.6-5.0) 12/12/21 03:37 Chloride 105.9 mmol/L (98-107) 12/12/21 03:37 Carbon Dioxide 22 mmol/L (22-30) 12/12/21 03:37 Anion Gap 17 mmol/L 12/12/21 03:37 BUN 19 mg/dL (7-17) H 12/12/21 03:37 Creatinine 0.9 mg/dL (0.6-1.2) 12/12/21 03:37 Estimated GFR > 60 ml/min 12/12/21 03:37 BUN/Creatinine Ratio 21 % 12/12/21 03:37 Glucose 116 mg/dL (65-100) H 12/12/21 03:37 POC Glucose 132 mg/dL (70-105) H 12/12/21 05:31 Calcium 9.2 mg/dL (8.4-10.2) 12/12/21 03:37 Total Bilirubin 0.20 mg/dL (0.1-1.2) 12/11/21 12:22 AST 18 units/L (5-40) 12/11/21 12:22 ALT 21 units/L (7-56) 12/11/21 12:22 Alkaline Phosphatase 93 units/L (35-129) 12/11/21 12:22 Troponin T < 0.010 ng/mL (0.00-0.029) 12/11/21 23:24 Total Protein 7.4 g/dL (6.3-8.2) 12/11/21 12:22 Albumin 4.5 g/dL (3.9-5) 12/11/21 12:22 Albumin/Globulin Ratio 1.6 % 12/11/21 12:22 HCG, Qual Negative (Negative) 12/11/21 12:22 Blood Type O POSITIVE 12/11/21 15:42 Antibody Screen Negative 12/11/21 15:42 [place]/IV: Voiding Method Toilet Active Medications - Current Medications Current Medications: Generic Name Dose Route Start Last Admin Trade Name Freq PRN Reason Stop Dose Admin Acetaminophen 650 mg 12/11/21 15:34 Acetaminophen 325 Mg Tab PO Q4H PRN Pain MILD(1-3)/Fever >100.5/MITCHELL Albuterol 2.5 mg 12/11/21 15:34 Albuterol 2.5 Mg/3 Ml Nebu IH Q4HRT PRN Shortness Of Breath Aspirin 325 mg 12/12/21 09:24 Aspirin Ec 325 Mg Tab PO 12/12/21 09:25 ONCE ONE Atorvastatin Calcium 40 mg 12/11/21 22:00 12/11/21 21:55 Atorvastatin 40 Mg Tab PO 40 mg QHS DAWNA Administration Famotidine 20 mg 12/11/21 22:00 12/11/21 21:55 Famotidine 20 Mg Tab PO 20 mg BID DAWNA Administration Hydromorphone HCl 0.5 mg 12/11/21 15:34 12/11/21 16:30 Hydromorphone 0.5 Mg/0.5 Ml Inj IV 0.5 mg Q3H PRN Administration Pain , Severe (7-10) Heparin Sodium/Sodium Chloride 25,000 unit in 250 mls @ 9.979 mls/hr 12/11/21 16:00 12/12/21 00:30 Heparin/ 0.45% Nacl-25,000 Unit/250 Ml IV 10 units/kg/hr TITRATE DAWNA 9.979 mls/hr Titration Protocol 10 UNITS/KG/HR Sodium Chloride 500 mls @ 50 mls/hr 12/12/21 10:00 Nacl 0.9% 500 Ml IV DIRECT [facility] Metoprolol Tartrate 25 mg 12/11/21 16:00 12/11/21 21:55 Metoprolol Tartrate 25 Mg Tab PO Not Given BID [facility] Ondansetron HCl 4 mg 12/11/21 15:34 12/11/21 16:31 Ondansetron 4 Mg/2 Ml Inj IV 4 mg Q8H PRN Administration Nausea And Vomiting Oxycodone/Acetaminophen 1 tab 12/11/21 15:34 Oxycodone /Acetaminophen 5-325mg Tab PO Q6H PRN Pain, Moderate (4-6) Sodium Chloride 10 ml 12/11/21 22:00 12/11/21 21:55 Sodium Chloride 0.9% 10 Ml Flush Syringe IV 10 ml BID DAWNA Administration Sodium Chloride 10 ml 12/11/21 15:34 Sodium Chloride 0.9% 10 Ml Flush Syringe IV PRN PRN LINE FLUSH
[2021-12-12] MEDS ORDERED: HEPARIN 10,000 UNITS/10 ML VIAL ONE (09:44)
[2021-12-12] MEDS ORDERED: HEPARIN/NS 5000 UNIT/500ML 1,000 ML IR ONE (09:44)
[2021-12-12] MEDS: SODIUM CHLORIDE 0.9% 500 ML 500 ML IV SCH ×2 (09:48→10:24)
[2021-12-12] MEDS: MIDAZOLAM 2 MG/2 ML INJ ONE ×2 (09:49→10:17)
[2021-12-12] MEDS: HEPARIN 10,000 UNITS/10 ML VIAL ONE ×2 (09:49→10:23)
[2021-12-12] MEDS: fentaNYL 100 MCG/2 ML INJ ONE ×3 (09:49→10:40)
[2021-12-12] MEDS: LIDOCAINE MPF (2%) 20 MG/1 ML VIAL 5 ML ONE ×2 (09:50→10:21)
[2021-12-12] MEDS: VERAPAMIL 5 MG/2 ML INJ ONE ×2 (09:50→10:23)
[2021-12-12] MEDS: NITROGLYCERIN SYRINGE 3 ML ONE ×2 (09:51→10:23)
[2021-12-12] MEDS: METOPROLOL TARTRATE 25 MG TAB PO SCH ×2 (10:00→21:20)
[2021-12-12] MEDS ORDERED: SODIUM CHLORIDE 0.9% 500 ML 500 ML IV SCH (10:00)
[2021-12-12] MEDS ORDERED: LIDOCAINE MPF (2%) 20 MG/1 ML VIAL 5 ML ONE (10:38)
[2021-12-12] MEDS ORDERED: LIDOCAINE (2%) 20 MG/1 ML VIAL 20 ML MDV INFILTRATI ONE (10:40)
--- NOTE | 2021-12-12 12:39 | Progress Note ---
Assessment and Plan Patient is a 46-year-old female with a past medical history of lupus who presented to the ED today with a complaint of chest pain x2-week. Chest pain Abnormal stress test Lupus Obesity Plan: EKG shows sinus rhythm 84 no acute ischemic changes. Troponins negative x2. AMI ruled out Patient had negative cath this a.m. See report for full details Continue aspirin, atorvastatin 40 mg p.o. nightly, and metoprolol 25 mg p.o. twice daily As patient did report chest pain will initiate Ranexa 500 mg p.o. twice daily Patient refused echo Will schedule patient for cardiac CT Cardiac status otherwise stable for discharge Patient should follow-up with Dr. Engle, [facility] soil fertility extension specialist, in 1 to 2 weeks after discharge. Phone #[phone] Patient seen in conjunction with Dr. Amato who agrees with plan of care - Patient Problems (1) Lupus Current Visit: Yes Status: Acute (2) Chest pain Current Visit: Yes Status: Acute (3) Positive cardiac stress test Current Visit: Yes Status: Acute Subjective Date of service: 12/12/21 Principal diagnosis: Abnormal stress test Interval history: Patient for cardiac cath this a.m. Sinus 70s- 80s normal Objective Vital Signs Temp Pulse Resp BP Pulse Ox 12/12/21 12:20 70 15 141/72 100 12/12/21 12:00 58 L 17 137/82 100 12/12/21 11:45 69 11 L 143/83 100 12/12/21 11:20 98.1 F 69 15 148/85 100 12/12/21 08:35 98.9 F 79 138/68 100 12/12/21 03:31 98.5 F 73 16 123/39 79 L 12/12/21 01:37 100 12/11/21 23:11 99.5 F 75 18 114/43 99 12/11/21 20:00 75 12/11/21 19:05 97.5 F L 78 16 131/65 100 12/11/21 17:31 88 11 L 143/69 98 12/11/21 17:21 78 19 142/66 97 12/11/21 17:11 89 13 146/92 98 12/11/21 17:01 88 12 146/92 98 12/11/21 16:45 90 12 145/87 98 12/11/21 16:31 92 H 19 162/69 98 12/11/21 16:15 89 16 151/74 100 12/11/21 16:01 86 18 153/69 96 12/11/21 15:45 79 13 150/70 100 12/11/21 15:31 80 13 148/68 100 12/11/21 15:15 81 12 147/76 86 12/11/21 15:01 84 12 157/79 99 12/11/21 14:45 84 17 164/59 100 12/11/21 14:31 84 14 148/80 100 12/11/21 14:15 80 21 135/72 99 12/11/21 14:01 83 20 133/74 99 12/11/21 13:51 86 141/62 100 12/11/21 13:31 77 12 135/72 99 12/11/21 13:15 89 11 L 171/89 100 12/11/21 13:00 88 16 161/87 98 12/11/21 12:46 90 11 L 141/67 100 12/11/21 12:40 85 11 L 99 - Physical Examination General: No Apparent Distress HEENT: Positive: PERRL Cardiac: Positive: Reg Rate and Rhythm Lungs: Positive: Normal Breath Sounds Neuro: Positive: Grossly Intact Abdomen: Positive: Soft Skin: Negative: Rash, Suspicious Lesions, Ulceration Extremities: Present: upper extr. pulses. Absent: edema - Labs and Meds Cardiac Enzymes 12/11/21 Range/Units 12:22 AST 18 (5-40) units/L Coagulation 12/11/21 12/11/21 Range/Units 12:22 15:42 PT 13.6 13.3 (12.2-14.9) Sec. INR 0.92 0.89 (0.87-1.13) APTT 27.5 28.3 (24.2-36.6) Sec. CBC 12/11/21 12/11/21 12/12/21 Range/Units 12:22 15:42 03:37 WBC 10.0 12.2 H (4.5-11.0) K/mm3 RBC 4.66 4.31 (3.65-5.03) M/mm3 Hgb 12.8 12.7 11.4 (10.1-14.3) gm/dl Hct 38.9 39.7 36.2 (30.3-42.9) % Plt Count 266 272 245 (140-440) K/mm3 Lymph # (Auto) 3.0 (1.2-5.4) K/mm3 [place] # (Auto) 1.1 H (0.0-0.8) K/mm3 Eos # (Auto) 0.1 (0.0-0.4) K/mm3 Baso # (Auto) 0.1 (0.0-0.1) K/mm3 Comprehensive Metabolic Panel 12/11/21 12/12/21 Range/Units 12:22 03:37 Sodium 135 L 141 (137-145) mmol/L Potassium 4.5 4.2 (3.6-5.0) mmol/L Chloride 101.3 105.9 (98-107) mmol/L Carbon Dioxide 21 L 22 (22-30) mmol/L BUN 14 19 H (7-17) mg/dL Creatinine 0.7 0.9 (0.6-1.2) mg/dL Glucose 139 H 116 H (65-100) mg/dL Calcium 9.8 9.2 (8.4-10.2) mg/dL AST 18 (5-40) units/L ALT 21 (7-56) units/L Alkaline Phosphatase 93 (35-129) units/L Total Protein 7.4 (6.3-8.2) g/dL Albumin 4.5 (3.9-5) g/dL - Imaging and Cardiology Echo: pending Cardiac cath: pending - Telemetry EKG Rhythm: Sinus Rhythm - EKG Sinus rhythms and dysrhythmias: sinus rhythm
[2021-12-12] MEDS: RANOLAZINE ER 500 MG TAB 12HR PO SCH ×2 (15:50→21:20)
[2021-12-12] MEDS: FAMOTIDINE 20 MG TAB PO SCH ×2 (15:50→21:20)
[2021-12-12] MEDS: ONDANSETRON 4 MG/2 ML INJ IV PRN (20:28)
[2021-12-12 22:25] LABS: INR 0.88 (0.87-1.13)
[2021-12-12 22:26] LABS: Partial Thromboplastin Time 22.7 Sec. (24.2-36.6)
[2021-12-13 04:33] LABS: Hematocrit 34.3 % (30.3-42.9); Hemoglobin 11.1 gm/dl (10.1-14.3)
--- NOTE | 2021-12-13 08:53 | Discharge Summary ---
Providers - Providers Date of Admission: 12/11/21 15:34 Date of discharge: 12/13/21 Attending physician: SELENE SOL 12/11/21 Consult to Cardiac Rehabilitation [CONS] Routine Reason For Exam: Phase 1 12/11/21 15:40 Consult to Cardiology [CONS] Routine Consulting Provider: YULI HANSON Reason For Exam: angina Primary care physician: GINNY CAPPS Hospitalization Reason for admission: Chest pain Condition: Stable Hospital course: 46-year-old female with significant past medical history of SLE presented through the emergency department with complaints of chest pain x2 weeks. 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 Patient was admitted for further evaluation including cardiac catheterization and echocardiogram. Patient was noted to have troponins that was negative x2. Patient also underwent cardiac catheterization that was found to have normal coronaries with no evidence of ischemia. Patient is showing no evidence of acute heart failure, no evidence of NSTEMI and no evidence of OHS. Patient was treated with aspirin, atorvastatin and metoprolol twice daily. Cardiology also initiated Ranexa 500 mg p.o. twice daily. Patient refused echocardiogram. Cardiology is scheduling patient for cardiac CT. patient is felt to have received maximal hospital benefit and will be discharged home. Dedicated discharge time 32 minutes. Disposition: 01 HOME / SELF CARE / HOMELESS Final Discharge Diagnosis (Prints w/discharge instructions): Chest pain with etiology likely GERD, abnormal stress test, SLE, obesity Core Measure Documentation - Palliative Care Palliative Care/ Comfort Measures: Not Applicable - Core Measures Any of the following diagnoses?: none Exam - Constitutional Vitals: Temp Pulse Resp BP Pulse Ox 98.5 F 85 18 106/75 99 12/13/21 08:38 12/13/21 08:38 12/13/21 08:38 12/13/21 08:38 12/13/21 08:38 General appearance: Present: no acute distress, well-nourished - EENT Eyes: Present: PERRL ENT: hearing intact, clear oral mucosa - Neck Neck: Present: supple, normal ROM - Respiratory Respiratory effort: normal Respiratory: bilateral: CTA - Cardiovascular Heart Sounds: Present: S1 & S2. Absent: rub, click - Extremities Extremities: pulses symmetrical, No edema Peripheral Pulses: within normal limits - Abdominal General gastrointestinal: Present: soft, non-tender, non-distended, normal bowel sounds Female genitourinary: Present: normal - Integumentary Integumentary: Present: clear, warm, dry - Musculoskeletal Musculoskeletal: gait normal, strength equal bilaterally - Psychiatric Psychiatric: appropriate mood/affect, intact judgment & insight - Neurologic Neurologic: CNII-XII intact, moves all extremities Plan Activity: advance as tolerated Weight Bearing Status: Weight Bear as Tolerated Diet: low fat, low cholesterol, low salt Follow up with: GINNY CAPPS MD [Primary Care Provider] - 3-5 Days IVETTE PEREZ MD [Staff Physician] - 7 Days Prescriptions: AtorvaSTATin [Lipitor] 40 mg PO QHS #30 tablet Metoprolol [Lopressor TAB] 25 mg PO BID #60 tablet Famotidine [Pepcid] 20 mg PO BID #60 tablet Ranolazine ER [Ranexa ER] 500 mg PO BID #60 tablet
[2021-12-13] MEDS: FAMOTIDINE 20 MG TAB PO SCH (09:17)
[2021-12-13] MEDS: RANOLAZINE ER 500 MG TAB 12HR PO SCH (09:17)
[2021-12-13] MEDS: METOPROLOL TARTRATE 25 MG TAB PO SCH (09:18)
--- NOTE | 2021-12-13 09:41 | Electrocardiograph Report ---
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
--- NOTE | 2021-12-13 09:46 | Electrocardiograph Report ---
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
--- NOTE | 2021-12-13 11:57 | Electrocardiograph Report ---
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
--- NOTE | 2021-12-13 12:23 | Progress Note ---
Assessment and Plan Patient is a 46-year-old female with a past medical history of lupus who presented to the ED today with a complaint of chest pain x2-week. Chest pain Abnormal stress test Lupus Obesity Plan: Patient reports being chest pain-free this a.m. Patient had negative cath this a.m. See report for full details Continue aspirin, atorvastatin 40 mg p.o. nightly, and metoprolol 25 mg p.o. twice daily, Ranexa 500 mg p.o. twice daily Patient refused echo Will schedule patient for cardiac CT as an outpatient Cardiac status otherwise stable for discharge Patient should follow-up with Dr. Engle, [facility] imcu specialist, in 1 to 2 weeks after discharge. Phone #[phone] Patient seen in conjunction with Dr. Amato who agrees with plan of care - Patient Problems (1) Lupus Current Visit: Yes Status: Acute (2) Chest pain Current Visit: Yes Status: Acute (3) Positive cardiac stress test Current Visit: Yes Status: Acute Subjective Date of service: 12/13/21 Principal diagnosis: Abnormal stress test Interval history: Patient resting in bed in no acute distress Sinus 70s- 80s Objective Vital Signs Temp Pulse Resp BP Pulse Ox 12/13/21 08:38 98.5 F 85 18 106/75 99 12/13/21 03:14 98.6 F 72 16 120/49 100 12/12/21 22:44 98.6 F 69 15 119/71 92 12/12/21 22:15 94 12/12/21 21:14 100 12/12/21 20:00 76 12/12/21 19:10 98.0 F 63 16 126/74 94 12/12/21 16:25 98.4 F 78 132/76 100 12/12/21 14:00 76 12/12/21 13:37 98.1 F 63 139/83 91 - Physical Examination General: No Apparent Distress HEENT: Positive: PERRL Neck: Positive: trachea midline Cardiac: Positive: Reg Rate and Rhythm Lungs: Positive: Normal Breath Sounds Neuro: Positive: Grossly Intact Abdomen: Positive: Soft Skin: Negative: Rash, Suspicious Lesions, Ulceration Extremities: Present: upper extr. pulses. Absent: edema - Labs and Meds Coagulation 12/12/21 Range/Units 21:54 PT 13.1 (12.2-14.9) Sec. INR 0.88 (0.87-1.13) APTT 22.7 L (24.2-36.6) Sec. CBC 12/13/21 Range/Units 04:05 Hgb 11.1 (10.1-14.3) gm/dl Hct 34.3 (30.3-42.9) % Plt Count 217 (140-440) K/mm3 - Imaging and Cardiology Echo: pending Cardiac cath: pending - EKG Sinus rhythms and dysrhythmias: sinus rhythm
[2021-12-13 12:43] VITALS: BP 125/65
== END 2021-12-13 12:55 | disposition home or self-care (01) ==
LOC: ED 12:00 → INTOOBSV 15:34 → 4A 15:34
PROVIDERS: ADMIT Internal Medicine; ATTEND Hospitalist
DX: I20.0 Unstable angina (principal); I21.4 Non-ST elevation (NSTEMI) myocardial infarction; I11.0 Hypertensive heart disease with heart failure; I50.31 Acute diastolic (congestive) heart failure; M32.9 Systemic lupus erythematosus, unspecified; E66.2 Morbid (severe) obesity with alveolar hypoventilation; R07.89 Other chest pain; R94.39 Abnormal result of other cardiovascular function study; Z68.42 Body mass index [BMI] 45.0-49.9, adult; Z79.82 Long term (current) use of aspirin
CPT/HCPCS: 36415; 71045; 80048; 80053; 82962; 84484; 84703; 85007; 85014; 85018; 85025; 85049; 85520; 85610; 85652; 85730; 86140; 86850; 86900; 86901; 93005; 93458; 93567; 96365; 96366; 96375; 96376; 99285; C1894; G0378; J1170; J1644; J1815; J2250; J2405; J3010; J7040; 96374; J3490; Q9967